=== PATIENT | female | born 1990 | race Two or more races ===

== ENCOUNTER 2025-01-09 05:26 | Emergency (ER) | payer OTHER ==
[~2025-01-09] VITALS: Ht 149.9 cm; Wt 61.4 kg
[2025-01-09 05:35] VITALS: BP 127/50; PULSE 64; RESP 16; TEMP 97.7; O2SAT 100
== END 2025-01-09 06:50 | disposition left against medical advice (07) ==
LOC: EMS 06:05
DX: R21 Rash and other nonspecific skin eruption (principal); Z53.21 Procedure and treatment not carried out due to patient leaving prior to being seen by health care provider